=== PATIENT | female | born 1990 ===

== ENCOUNTER 2018-11-19 02:28 | Outpatient (CLI) | payer SELFPAY ==
[2018-11-19 10:20] LABS: CHOL/HDL RATIO 2.07 (0.00-4.99)
[2018-11-19 10:24] LABS: HEMOGLOBIN A1C 4.8 % (4.5-6.2)
== END 2018-11-19 23:59 | disposition home or self-care (01) ==
LOC: HW HEART 02:28
DX: Z13.6 Encounter for screening for cardiovascular disorders (principal)
CPT/HCPCS: 36415